=== PATIENT | female | born 1980 | race Caucasian/White ===

== ENCOUNTER → 2016-09-18 | Outpatient (CLI) | payer OTHER ==
--- NOTE | 2016-09-18 16:11 | DI ---
LUMBAR SPINE SERIES, 09/18/2016 2:40 PM: Clinical History: Displacement of the lumbar intervertebral disc without myelopathy. Previous Exam: 04/26/2012. Upright AP and lateral and upright lateral flexion and extension views are submitted. The patient is status post L4 and possibly L5 laminectomies with anterior fusions at L4-5 and L5-S1 and posterior fu sions between L4 and S1. Posterior fusions are accomplished with metallic struts transfixed with pedi maureen screws between L4 and S1. Anterior fusions are performed with bone grafts at L4-5 transfixed with an anterior metallic plate and a bone graft cage at L5-S1. There is still a lucency between the bone graft in the superior endplate of L5 and this portion of the anterior fusion may not be solid. There is no continuity of bone between the inferior endplate of L5 and the superior endplate of S1 and the anterior fusion may not be solid. The patient has developed mild to moderate disc space narrowing at L2-3 and L3-4 since the previous study. No instability is noted with flexion and extension maneuvers . The remaining pedicles are normal. Both SI joints are normal. The patient may have developed hepato megaly since the previous exam. Readin. Status post L4 and possibly L5 laminectomy with anterior and posterior fusions at L4-5 and L5-S1. The anterior fusion at L4-5 has been performed with the anterior approach with placement of the bone graft and transfixed with a metallic plate anteriorly. The bone graft in the superior endplate of L5 may not be fused. There is no continuity of bone between the L5 and S1 bodies and the L5-S1 anterior fusion may not be solid. 2. Interval development of mild disc space narrowing at L2-3 and L3-4. 3. The patient may have developed hepatomegaly.
== END ==
LOC: RAD 14:36
PROVIDERS: ATTEND Neurological Surgery
DX: M51.26 Other intervertebral disc displacement, lumbar region (principal); Z98.1 Arthrodesis status
CPT/HCPCS: 72110

== ENCOUNTER → 2016-10-15 | Outpatient (CLI) | payer OTHER ==
[2016-10-15 15:30] LABS: HEMATOCRIT 51.9 % (37.0-47.0); HEMOGLOBIN 17.4 g/dL (12.0-16.0); MEAN CORPUSCULAR HEMOGLOBIN 32.3 PG (27-31); MEAN CORPUSCULAR HGB CONC 33.5 g/dL (33-37); MEAN PLATELET VOLUME 9.5 FL (7.4-12.2); RDW COEFFICIENT OF VARIATION 13.4 % (11.5-14.5); RED BLOOD COUNT 5.38 10^6/uL (4.20-5.40); WHITE BLOOD COUNT 8.16 10^3/uL (4.8-10.8)
== END ==
LOC: LAB 15:18
PROVIDERS: ATTEND Psychiatry & Neurology Psychiatry
DX: F25.9 Schizoaffective disorder, unspecified (principal)
CPT/HCPCS: 36415; 85027

== ENCOUNTER → 2016-12-06 | Outpatient (CLI) | payer OTHER ==
[2016-12-06 13:33] LABS: HEMATOCRIT 53.1 % (37.0-47.0); HEMOGLOBIN 17.2 g/dL (12.0-16.0); MEAN CORPUSCULAR HEMOGLOBIN 30.9 PG (27-31); MEAN CORPUSCULAR HGB CONC 32.4 g/dL (33-37); MEAN CORPUSCULAR VOLUME 95.3 FL (81-99); MEAN PLATELET VOLUME 10.5 FL (7.4-12.2); RED BLOOD COUNT 5.57 10^6/uL (4.20-5.40)
== END ==
LOC: LAB 12:31
PROVIDERS: ATTEND Psychiatry & Neurology Psychiatry
DX: F25.9 Schizoaffective disorder, unspecified (principal)
CPT/HCPCS: 36415; 85027

== ENCOUNTER → 2017-01-02 | Outpatient (CLI) | payer OTHER ==
[2017-01-02 16:49] LABS: HIV ANTIBODY NEGATIVE (N); HIV-1 P24 ANTIGEN NEGATIVE (N)
== END ==
LOC: LAB 14:15
PROVIDERS: ATTEND Obstetrics & Gynecology Gynecology
DX: Z20.2 Contact with and (suspected) exposure to infections with a predominantly sexual mode of transmission (principal)
CPT/HCPCS: 36415; 85027; 86703; 86803

== ENCOUNTER 2017-01-19 14:14 | Emergency (ER) | payer OTHER ==
[2017-01-19] MEDS ORDERED: LORazepam 2 MG/1 ML VIAL IVP ONE (14:33)
[2017-01-19] MEDS ORDERED: NORMAL SALINE 10 ML SYRINGE FLUSH IVP PRN (14:33)
[2017-01-19 14:42] LABS: BASOPHILS # (AUTO) 0.02 10*3/UL; BASOPHILS % (AUTO) 0.2 % (0-1); EOSINOPHILS # (AUTO) 0.05 10*3/UL; EOSINOPHILS % (AUTO) 0.5 % (0-8); HEMATOCRIT 47.7 % (37.0-47.0); HEMOGLOBIN 16.2 g/dL (12.0-16.0); LYMPHOCYTES # (AUTO) 3.05 10*3/uL; MEAN CORPUSCULAR HEMOGLOBIN 31.6 PG (27-31); MEAN CORPUSCULAR VOLUME 93.2 FL (81-99); MEAN PLATELET VOLUME 10.1 FL (7.4-12.2); MONOCYTES # (AUTO) 0.68 10*3/UL (0.3-0.8); MONOCYTES % (AUTO) 6.2 % (5-15); NEUTROPHILS # (AUTO) 7.12 10*3/UL; RED BLOOD COUNT 5.12 10^6/uL (4.20-5.40)
[2017-01-19 14:45] LABS: PLATELET MORPHOLOGY COMMENT NORMAL MORPHOLOGY (NORM); RBC MORPHOLOGY COMMENT NORMAL MORPHOLOGY (NORM); WBC MORPHOLOGY COMMENT NORMAL MORPHOLOGY (NORM)
--- NOTE | 2017-01-19 14:50 | PDOC ---
Psych/Suicidal/OD HPI - General Chief Complaint: Suicidal Ideation / Attempt Stated Complaint: Suicidal thoughts/auditory hullcinations Date Seen by Provider: 01/19/17 Time Seen by Provider: 14:35 Source: POSITIVE: Patient, Other (mom) Exam Limitations: POSITIVE: No limitations Nurse's Notes Reviewed & Considered: Yes - History of Present Illness Initial Comments: The patient is a 36-year-old female who presents to the emergency department with worsening hallucinations as well as suicidal thoughts. The patient reports that she has been diagnosed with bipolar and schizoaffective disorder. She states that she has had psychological issues for many years. She was apparently hospitalized in [place] at [facility] several months ago. She states that for the past several weeks or possibly longer she has been having increased difficulty sleeping, increased anxiety as well as increased auditory and visual hallucinations. In addition she has had increased suicidal thoughts. She states that a couple of days ago she was seriously contemplating taking all of her pills in an attempt to overdose and kill herself. She states that she had all of her pills in her hand and then decided not to take them. She states that she still feels like running and just wants to . She states that she has been scared to be by herself because she feels like somebody is trying to kill her. She stayed with her mom last night because she is afraid to be alone. She states that she did run out of clonazepam for 5 days ago. - Patient Home Medications Home Medications: Home Medications Medication Instructions Recorded Confirmed Clonazepam [Klonopin] 2 mg PO BEDTIME 02/14/15 01/19/17 Gabapentin [Neurontin] 900 mg PO BID 02/14/15 01/19/17 Clozapine 50 mg PO BID 07/25/15 01/19/17 Clozapine [Clozapine Odt] 150 mg PO BEDTIME 07/25/15 01/19/17 - Patient Allergies Allergies/Adverse Reactions: Allergies Allergy/AdvReac Type Severity Reaction Status Date / Time hydromorphone HCl Allergy Severe Anaphylaxis Verified 01/19/17 15:05 [From Dilaudid] acetaminophen Allergy Intermediate HIVES Verified 01/19/17 15:05 [From Darvocet-N 100] propoxyphene napsylate Allergy Intermediate HIVES Verified 01/19/17 15:05 [From Darvocet-N 100] trazodone AdvReac Severe NOT Verified 01/19/17 15:05 APPLICABLE Past Medical History - heen HEENT History: Denies History Cardiovascular History: Denies History Respiratory History: Other (please comment) Additional Respiratory History: CHRONIC TOBACCO ABUSE Gastrointestinal History: GERD, Gallbladder Disease Genitourinary History: Denies History Endocrine History: Denies History Musculoskeletal History: Back Pain, Back Injury Prosthesis or Implant: No Additional Musculoskeletal History: L5-S1 fusion with harware, L4-L5 FUSION, DISCECTOMY. Neurological History: Denies History Blood Disorders: Denies History Psychiatric History: Bi Polar Disorder, Schizophrenia, Anxiety Disorders Additional Psychiatric History: MANIC DEPRESSIVE. PSYCHOTIC EPISODES. schizoaffective History of Sexually Transmitted Diseases: (PT STATES "I AM SURE I HAVE HERPES") Cancer History: Denies History History of MDRO: No History of Other Communicable Diseases: No Alcohol Use: Occasionally Substance Use Type: None Previous Surgical History: Yes Type / Date of Surgery: LOW BACK FUSION. C SECTION X 3. GALLBLADDER. TUBAL LIGATION. DISKECTOMY Anesthesia Reactions: No Malignant Hyperthermia: No Significant Family History: No pertinent family hx, Diabetes, Hypertension, Lung disease Past Medical History Reviewed: Reviewed - No Changes ROS - Limitations ROS Limitations: No Limitations Constitution: DENIES: Chills, Fever Cardiovascular: REPORTS: Denies Cardiac Symptoms Respiratory: REPORTS: Cough Non Productive Neurological: DENIES: Headache, Numbness, Weakness Gastrointestinal: REPORTS: Denies GI Symptoms, Other (Poor appetite) Musculoskeletal: REPORTS: Denies MS Symptoms Eyes: REPORTS: Denies Symptoms ENT: REPORTS: Denies Symptoms Skin: DENIES: Rash Psych/Suicidal/OD Exam - General Appearance General Appearance: POSITIVE: No Acute Distress, Anxious, Other (Tearful at times) - HEENT HEENT: POSITIVE: Head Inspection Nml, Eyes Inspection Nml, Ears Inspection Nml, Pharynx Inspect. Nml, PERRL, EOMI - Neurological/Psychological Orientation: POSITIVE: Oriented x3 Cranial Nerves: POSITIVE: resort desk clerk Intact as Tested Sensory/Motor: POSITIVE: Normal Motor Response, Normal Sensory Response - Neck/Back Neck/Back: POSITIVE: Normal Inspection - Respiratory Respiratory: POSITIVE: No Respiratory Distress, Breath Sounds Normal - CVS Cardiovascular: POSITIVE: Regular Rate and Rhythm, Heart Sounds Normal - Abdomen Abdomen: Soft: (All Quadrants), Normal Bowel Sounds: (All Quadrants), No Distention: (All Quadrants) - Skin Skin: POSITIVE: Intact, No Rash - Extremities Extremity: Normal ROM: (All Extremities), Normal Inspection: (All Extremities) Psych/Suicidal/OD Progress - Results Reviewed by me Lab Results Reviewed: Yes Lab Results:: Laboratory Results 01/19/17 01/19/17 Range/Units 14:22 14:23 WBC 10.94 H (4.8-10.8) 10^3/uL RBC 5.12 (4.20-5.40) 10^6/uL Hgb 16.2 H (12.0-16.0) g/dL Hct 47.7 H (37.0-47.0) % MCV 93.2 (81-99) FL MCH 31.6 H (27-31) PG MCHC 34.0 (33-37) g/dL RDW Std Deviation 46.1 (39-50) fL RDW Coeff of Emerson 13.9 (11.5-14.5) % Plt Count 196 (140-350) 10*3/uL MPV 10.1 (7.4-12.2) FL Immature Gran % (Auto) 0.2 (0-5) % Neut % (Auto) 65.0 (50-80) % Lymph % (Auto) 27.9 (10-50) % [place] % (Auto) 6.2 (5-15) % Eos % (Auto) 0.5 (0-8) % Baso % (Auto) 0.2 (0-1) % Immature Gran # (Auto) 0.02 10*3/UL Neut # (Auto) 7.12 10*3/UL Lymph # (Auto) 3.05 10*3/uL [place] # (Auto) 0.68 (0.3-0.8) 10*3/UL Eos # (Auto) 0.05 10*3/UL Baso # (Auto) 0.02 10*3/UL WBC Morphology Comment Normal morphology (NORM) Plt Morphology Comment Normal morphology (NORM) RBC Morph Comment Normal morphology (NORM) Sodium 142 (135-145) meq/L Potassium 3.6 L (3.8-5.2) meq/L Chloride 109 (98-112) meq/L Carbon Dioxide 23 (23-33) meq/L Anion Gap 10 (5-20) BUN 11 (7-22) mg/dL Creatinine 0.9 (0.50-1.20) mg/dL Estimated GFR > 60 (>60 ml/min/1.73m(2)) BUN/Creatinine Ratio 12.22 (6-20) Glucose 101 (78-110) mg/dL Calculated Osmolality 292.0 (267-292) mOsm/kg Calcium 9.1 (8.7-10.7) mg/dL Total Bilirubin 0.8 (0.3-1.2) mg/dL AST 28 (8-39) IU/L ALT 46 (9-52) IU/L Alkaline Phosphatase 104 (38-126) IU/L Total Protein 7.5 (6.1-8.0) g/dL Albumin 4.2 (3.5-4.8) g/dL Globulin 3.3 (2.50-4.10) g/dL Albumin/Globulin Ratio 1.20 L (1.3-2.0) mg/g TSH 1.70 (0.2700-4.2000) uIU/mL Serum HCG, Qual Negative Ur Collection Type Clean catch urine Urine Color Yellow Urine Clarity Clear (CLEAR) Urine pH 6.0 (5.0-8.5) Ur Specific [place] >=1.030 (1.005-1.030) U Specif Grav (Refrac) 1.034 Urine Protein 100 (NEG) mg/dl Urine Glucose (UA) Negative (NEG) mg/dL Urine Ketones Trace (NEG) Urine Occult Blood Negative (NEG) Urine Nitrate Negative (NEG) Urine Bilirubin Small (NEG) Urine Urobilinogen 1.0 (0.2) EU/dL Ur Leukocyte Esterase Negative (NEG) Urine RBC None (NONE) /hpf Urine WBC None (NONE) Ur Squamous Epith Cells Rare (NONE) Ur Renal Epithelial Cell None (NONE) Urine Crystals None Urine Bacteria Rare (NONE) Urine Casts None (NONE) Urine Mucus Moderate (NONE) Urine Trichomonas None (NONE) Urine Yeast None (NONE) Ur Culture Indicated? Culture not set Salicylates < 1.0 (0-20) mg/dl Urine Opiates Screen Positive H (NEG) Ur Buprenorphine Negative (NEG) Ur Oxycodone Screen Negative (NEG) Urine Methadone Screen Negative (NEG) Ur Propoxyphene Screen Negative (NEG) Acetaminophen < 10.0 (0-30) ug/mL Barbiturate Screen Negative (NEG) U Tricyclic Antidepress Positive H (NEG) Phencyclidine Screen Negative (NEG) Amphetamines Screen Negative (NEG) U Methamphetamines Scrn Negative (NEG) Benzodiazepines Screen Positive H (NEG) Cocaine Screen Negative (NEG) U Marijuana (THC) Screen Negative (NEG) Serum Alcohol < 10 (0-10) mg/dL - Patient's Progress MDM / ED Course: Blood work was drawn and a mental health consultation from [facility] was obtained. The patient was quite anxious and has been out of clonazepam for several days. She was given Ativan 2 mg IV. The patient was evaluated per [facility] and placed on a 381 hold. I was contacted for admission and has agreed to accept the patient. The patient is medically stable for transfer to the inpatient psychiatric facility. Patient Care Time - Estimated PCT Patient Care Time (In Minutes): 20 Vital Signs - Recent Vital Signs Vital Signs: Vital Signs (Last 8 hours) Temp Pulse Resp BP Pulse Ox 01/19/17 14:56 97.5 F 102 H 16 100/65 95 - VS Reviewed Vital Signs Reviewed: Yes Discharge Clinical Impression: Suicidal ideation Discharge Disposition: Transferred to Psychiatric Facility Condition: Fair Date Decision to Transfer to Another Facility: 01/19/17 Time Decision to Transfer to Another Facility: 17:40
[2017-01-19 14:55] LABS: BLOOD UREA NITROGEN 11 mg/dL (7-22); BUN/CREATININE RATIO 12.22 (6-20); CALCIUM 9.1 mg/dL (8.7-10.7); EST GLOMERULAR FILTRATION > 60 (>60 ml/min/1.73m(2)); SALICYLATE < 1.0 mg/dl (0-20); SERUM ALBUMIN 4.2 g/dL (3.5-4.8)
[2017-01-19 15:05] VITALS: RESP 16; TEMP 97.5
[2017-01-19 16:19] LABS: BILIRUBIN,URINE SMALL (NEG); COLOR,URINE YELLOW; GLUCOSE, URINE (UA) NEGATIVE (NEG); NITRATE,URINE NEGATIVE (NEG); OCCULT BLOOD,URINE NEGATIVE (NEG); PROTEIN,URINE 100 mg/dl (NEG)
[2017-01-19 16:30] LABS: CLARITY,URINE CLEAR (CLEAR); URINE SAMPLE TYPE CLEAN CATCH URINE; URINE SPECIFIC GRAVITY - MAN 1.034
[2017-01-19 16:31] LABS: AMPHETAMINE SCREEN NEGATIVE (NEG); BACTERIA,URINE RARE; CANNABINOID SCREEN,URINE NEGATIVE (NEG); COCAINE SCREEN NEGATIVE (NEG); METHADONE URINE SCREEN NEGATIVE (NEG); METHAMPHETAMINES SCREEN,URINE NEGATIVE (NEG); OPIATE SCREEN,URINE POSITIVE (NEG); SQUAMOUS EPITHELIAL CELL,UR RARE
== END 2017-01-19 18:13 | disposition home or self-care (01) ==
LOC: ER 14:14
DX: R45.851 Suicidal ideations (principal); R44.0 Auditory hallucinations; F20.9 Schizophrenia, unspecified
CPT/HCPCS: 80053; 80305; 80320; 80329; 81001; 81003; 84443; 84703; 85025; 90791; 96374; 99283; J2060

== ENCOUNTER 2017-04-18 12:37 | Emergency (ER) | payer OTHER ==
[2017-04-18] MEDS ORDERED: HALOPERIDOL LACTATE 5 MG/1 ML AMPULE IM ONE (12:57)
[2017-04-18 13:22] LABS: BASOPHILS # (AUTO) 0.03 10*3/UL; BASOPHILS % (AUTO) 0.3 % (0-1); EOSINOPHILS # (AUTO) 0.01 10*3/UL; EOSINOPHILS % (AUTO) 0.1 % (0-8); HEMOGLOBIN 16.9 g/dL (12.0-16.0); LYMPHOCYTES # (AUTO) 1.71 10*3/uL; MEAN CORPUSCULAR HEMOGLOBIN 32.1 PG (27-31); MEAN CORPUSCULAR HGB CONC 33.8 g/dL (33-37); MEAN CORPUSCULAR VOLUME 95.1 FL (81-99); MEAN PLATELET VOLUME 9.9 FL (7.4-12.2); MONOCYTES % (AUTO) 4.8 % (5-15); NEUTROPHILS # (AUTO) 8.24 10*3/UL; NEUTROPHILS % (AUTO) 78.4 % (50-80); RED BLOOD COUNT 5.26 10^6/uL (4.20-5.40)
[2017-04-18 13:25] LABS: PLATELET MORPHOLOGY COMMENT NORMAL MORPHOLOGY (NORM); RBC MORPHOLOGY COMMENT NORMAL MORPHOLOGY (NORM); WBC MORPHOLOGY COMMENT NORMAL MORPHOLOGY (NORM)
[2017-04-18 13:35] LABS: BLOOD UREA NITROGEN 5 mg/dL (7-22); BUN/CREATININE RATIO 5.55 (6-20); CALCIUM 10.1 mg/dL (8.7-10.7); EST GLOMERULAR FILTRATION > 60 (>60 ml/min/1.73m(2)); SERUM ALBUMIN 4.4 g/dL (3.5-4.8)
[2017-04-18 13:36] LABS: SALICYLATE < 1.0 mg/dl (0-20)
--- NOTE | 2017-04-18 13:37 | PDOC ---
Psych/Suicidal/OD HPI - General Chief Complaint: Psychiatric Complaint Stated Complaint: PARANOIA, HAVING VISIONS Date Seen by Provider: 04/18/17 Time Seen by Provider: 12:40 Source: POSITIVE: Patient, Other (family) Exam Limitations: POSITIVE: Clinical condition Nurse's Notes Reviewed & Considered: Yes - History of Present Illness Initial Comments: The patient is a 36-year-old female who presents to the emergency department with worsening psychotic symptoms. She has a history of psychiatric illness and psychoses. She still sees a psychiatrist in [place] associated with [facility]. Apparently she has a history of prior drug use as well. She used meth approximately 3 weeks ago which seems to have triggered some worsening psychotic symptoms. The patient reports that she is seeing visions of her children which are very disturbing to her. She states that she is having visions and thoughts that she is burning her children with acid, killing her children, having sex with her children and other disturbing images. She cannot tell me for sure what medications she is currently taking. When asked questions she sometimes just stares off into space and appears to be engaged in conversation in her head. She has not had any recent trauma or illness. - Patient Home Medications Home Medications: Home Medications Medication Instructions Recorded Confirmed Clonazepam [Klonopin] 2 mg PO BEDTIME 02/14/15 04/18/17 Gabapentin [Neurontin] 900 mg PO BID 02/14/15 04/18/17 Clozapine 50 mg PO BID 07/25/15 04/18/17 Clozapine [Clozapine Odt] 150 mg PO BEDTIME 07/25/15 04/18/17 Buprenorphine HCl/Naloxone HCl 1 each SL BID 04/18/17 04/18/17 [Suboxone 4 mg-1 mg Sl Film] - Patient Allergies Allergies/Adverse Reactions: Allergies Allergy/AdvReac Type Severity Reaction Status Date / Time hydromorphone HCl Allergy Severe Anaphylaxis Verified 04/18/17 12:50 [From Dilaudid] acetaminophen Allergy Intermediate HIVES Verified 04/18/17 12:50 [From Darvocet-N 100] propoxyphene napsylate Allergy Intermediate HIVES Verified 04/18/17 12:50 [From Darvocet-N 100] trazodone AdvReac Severe NOT Verified 04/18/17 12:50 APPLICABLE Past Medical History - heen HEENT History: Denies History Cardiovascular History: Denies History Respiratory History: Other (please comment) Additional Respiratory History: CHRONIC TOBACCO ABUSE Gastrointestinal History: GERD, Gallbladder Disease Genitourinary History: Denies History Endocrine History: Denies History Musculoskeletal History: Back Pain, Back Injury Prosthesis or Implant: No Additional Musculoskeletal History: L5-S1 fusion with harware, L4-L5 FUSION, DISCECTOMY. Neurological History: Denies History Blood Disorders: Denies History Psychiatric History: Bi Polar Disorder, Schizophrenia, Anxiety Disorders Additional Psychiatric History: MANIC DEPRESSIVE. PSYCHOTIC EPISODES. schizoaffective History of Sexually Transmitted Diseases: (PT STATES "I AM SURE I HAVE HERPES") Cancer History: Denies History In Past Year Been Physically Harmed or Verbally Threatened: No History of MDRO: Unknown History of Other Communicable Diseases: No Tobacco Use: Current Every Day Smoker Alcohol Use: None Substance Use Type: Methamphetamines Previous Surgical History: Yes Type / Date of Surgery: LOW BACK FUSION. C SECTION X 3. GALLBLADDER. TUBAL LIGATION. DISKECTOMY Anesthesia Reactions: No Malignant Hyperthermia: No Significant Family History: No pertinent family hx, Diabetes, Hypertension, Lung disease Past Medical History Reviewed: Reviewed - No Changes ROS - Limitations ROS Limitations: Other (please comment) (Patient sometimes stares off when asked questions and does not answer) Psych/Suicidal/OD Exam - General Appearance General Appearance: POSITIVE: Other (The patient is awake, she is distracted at times and stares off into space and appears to be engaged in conversation and her head at times, otherwise she is anxious and somewhat tearful) - HEENT HEENT: POSITIVE: Head Inspection Nml, Eyes Inspection Nml, Ears Inspection Nml, Pharynx Inspect. Nml - Neurological/Psychological Cranial Nerves: POSITIVE: technical analyst Intact as Tested Sensory/Motor: POSITIVE: Normal Motor Response - Neck/Back Neck/Back: POSITIVE: Normal Inspection, Supple. NEGATIVE: Lymphadenopathy - Respiratory Respiratory: POSITIVE: No Respiratory Distress, Breath Sounds Normal - CVS Cardiovascular: POSITIVE: Regular Rate and Rhythm, Heart Sounds Normal Peripheral Pulses: Dorsalis-pedis (R): 2+, Dorsalis-pedis (L): 2+ - Abdomen Abdomen: Soft: (All Quadrants), Denies Tenderness: (All Quadrants), No Distention: (All Quadrants) - Skin Skin: POSITIVE: Intact, No Rash - Extremities Extremity: Normal ROM: (All Extremities), Normal Inspection: (All Extremities) Psych/Suicidal/OD Progress - Results Reviewed by me Lab Results:: Laboratory Results 04/18/17 04/18/17 Range/Units 12:55 13:15 WBC 10.50 (4.8-10.8) 10^3/uL RBC 5.26 (4.20-5.40) 10^6/uL Hgb 16.9 H (12.0-16.0) g/dL Hct 50.0 H (37.0-47.0) % MCV 95.1 (81-99) FL MCH 32.1 H (27-31) PG MCHC 33.8 (33-37) g/dL RDW Std Deviation 44.0 (39-50) fL RDW Coeff of Emerson 12.9 (11.5-14.5) % Plt Count 188 (140-350) 10*3/uL MPV 9.9 (7.4-12.2) FL Immature Gran % (Auto) 0.1 (0-5) % Neut % (Auto) 78.4 (50-80) % Lymph % (Auto) 16.3 (10-50) % [place] % (Auto) 4.8 L (5-15) % Eos % (Auto) 0.1 (0-8) % Baso % (Auto) 0.3 (0-1) % Immature Gran # (Auto) 0.01 10*3/UL Neut # (Auto) 8.24 10*3/UL Lymph # (Auto) 1.71 10*3/uL [place] # (Auto) 0.50 (0.3-0.8) 10*3/UL Eos # (Auto) 0.01 10*3/UL Baso # (Auto) 0.03 10*3/UL WBC Morphology Comment Normal morphology (NORM) Plt Morphology Comment Normal morphology (NORM) RBC Morph Comment Normal morphology (NORM) Sodium 141 (135-145) meq/L Potassium 3.7 L (3.8-5.2) meq/L Chloride 107 (98-112) meq/L Carbon Dioxide 25 (23-33) meq/L Anion Gap 9 (5-20) BUN 5 L (7-22) mg/dL Creatinine 0.9 (0.50-1.20) mg/dL Estimated GFR > 60 (>60 ml/min/1.73m(2)) BUN/Creatinine Ratio 5.55 L (6-20) Glucose 117 H (78-110) mg/dL Calculated Osmolality 289.0 (267-292) mOsm/kg Calcium 10.1 (8.7-10.7) mg/dL Total Bilirubin 0.7 (0.3-1.2) mg/dL AST 23 (8-39) IU/L ALT 34 (9-52) IU/L Alkaline Phosphatase 75 (38-126) IU/L Total Protein 7.2 (6.1-8.0) g/dL Albumin 4.4 (3.5-4.8) g/dL Globulin 2.8 (2.50-4.10) g/dL Albumin/Globulin Ratio 1.50 (1.3-2.0) mg/g TSH 0.994 (0.2700-4.2000) uIU/mL Serum HCG, Qual Negative Ur Collection Type Clean catch urine Urine Color Yellow Urine Clarity Clear (CLEAR) Urine pH 7.0 (5.0-8.5) Ur Specific [place] 1.020 (1.005-1.030) U Specif Grav (Refrac) 1.020 Urine Protein 100 (NEG) mg/dl Urine Glucose (UA) Negative (NEG) mg/dL Urine Ketones 40 (NEG) Urine Occult Blood Negative (NEG) Urine Nitrate Negative (NEG) Urine Bilirubin Moderate (NEG) Urine Urobilinogen 2.0 (0.2) EU/dL Ur Leukocyte Esterase Negative (NEG) Urine RBC 5-8 (NONE) /hpf Urine WBC 3-5 (NONE) Ur Squamous Epith Cells Many (NONE) Ur Renal Epithelial Cell None (NONE) Urine Crystals Few Urine Bacteria Few (NONE) Urine Casts None (NONE) Urine Mucus Moderate (NONE) Urine Trichomonas None (NONE) Urine Yeast None (NONE) Ur Culture Indicated? Culture not set Salicylates < 1.0 (0-20) mg/dl Urine Opiates Screen Negative (NEG) Ur Buprenorphine Positive H (NEG) Ur Oxycodone Screen Negative (NEG) Urine Methadone Screen Negative (NEG) Ur Propoxyphene Screen Negative (NEG) Acetaminophen < 10.0 (0-30) ug/mL Barbiturate Screen Negative (NEG) U Tricyclic Antidepress Negative (NEG) Phencyclidine Screen Negative (NEG) Amphetamines Screen Negative (NEG) U Methamphetamines Scrn Negative (NEG) Benzodiazepines Screen Positive H (NEG) Cocaine Screen Negative (NEG) U Marijuana (THC) Screen Negative (NEG) Serum Alcohol < 10 (0-10) mg/dL - Patient's Progress MDM / ED Course: Mental health consultation was obtained. Blood work was drawn. The patient received Haldol 5 mg IM. Lab work is all essentially unremarkable and tox screen is positive only for medications currently taken by the patient. The patient was evaluated per mental health and arrangements were made to transfer the patient to [facility]. The patient is medically stable for inpatient psychiatric treatment. They have agreed to accept the patient in transfer. - Consult Counseled: POSITIVE: Patient, Family, RE: Lab Results, RE: DX Patient Care Time - Estimated PCT Patient Care Time (In Minutes): 25 Vital Signs - Recent Vital Signs Vital Signs: Vital Signs (Last 8 hours) Temp Pulse Resp BP Pulse Ox 04/18/17 12:37 96.4 F L 101 H 16 115/77 91 - VS Reviewed Vital Signs Reviewed: Yes Discharge Clinical Impression: Psychotic disorder Discharge Disposition: Transferred to Psychiatric Facility Condition: Fair Date Decision to Transfer to Another Facility: 04/18/17 Time Decision to Transfer to Another Facility: 16:00
[2017-04-18 14:11] LABS: BILIRUBIN,URINE MODERATE (NEG); CLARITY,URINE CLEAR (CLEAR); COLOR,URINE YELLOW; GLUCOSE, URINE (UA) NEGATIVE (NEG); NITRATE,URINE NEGATIVE (NEG); OCCULT BLOOD,URINE NEGATIVE (NEG); PROTEIN,URINE 100 mg/dl (NEG)
[2017-04-18 14:21] LABS: SQUAMOUS EPITHELIAL CELL,UR MANY; URINE SAMPLE TYPE CLEAN CATCH URINE
[2017-04-18 14:22] LABS: BACTERIA,URINE FEW; OPIATE SCREEN,URINE NEGATIVE (NEG); URINE CRYSTALS FEW
[2017-04-18 14:23] LABS: AMPHETAMINE SCREEN NEGATIVE (NEG); CANNABINOID SCREEN,URINE NEGATIVE (NEG); COCAINE SCREEN NEGATIVE (NEG); METHADONE URINE SCREEN NEGATIVE (NEG); METHAMPHETAMINES SCREEN,URINE NEGATIVE (NEG)
[2017-04-18 18:17] VITALS: RESP 14; TEMP 97.3
== END 2017-04-18 17:50 ==
LOC: ER 12:37
DX: F23 Brief psychotic disorder (principal); R45.850 Homicidal ideations
CPT/HCPCS: 36415; 80053; 80305; 80320; 80329 ×2; 81001; 81003; 84443; 84703; 85025; 90791; 96372; 99284 ×2; J1630